=== PATIENT | male | born 1990 | race American Indian/Alaskan Native ===

== ENCOUNTER 2019-04-14 22:59 | Emergency (ER) | payer OTHER ==
[2019-04-15] MEDS ORDERED: TYLENOL PO ONE (01:31)
[2019-04-15] MEDS ORDERED: IBUPROFEN PO ONE (01:31)
[2019-04-15] MEDS ORDERED: LIDOCAINE VISCOUS 2% PO ONE (01:31)
[2019-04-15] MEDS ORDERED: BICILLIN L-A IM ONE (01:35)
[2019-04-15] MEDS ORDERED: DECADRON IM ONE (01:35)
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
[2019-04-15 02:48] VITALS: BP 111/63
== END 2019-04-15 02:47 | disposition home or self-care (01) ==
LOC: ED 22:59
DX: J02.8 Acute pharyngitis due to other specified organisms (principal); J06.9 Acute upper respiratory infection, unspecified
CPT/HCPCS: 96372; 99282; J0561; J1100